=== PATIENT | female | born 1945 | race Caucasian/White ===

== ENCOUNTER 2016-11-14 15:55 | Inpatient (IN) | payer MEDICARE, OTHER ==
[~2016-11-14] VITALS: Ht 162.6 cm; Wt 85.7 kg
[2016-11-14 18:01] LABS: HEMOGLOBIN 15.8 gm/dl (12.3-15.3); RED BLOOD COUNT 5.03 M/UL (4.00-5.10); WHITE BLOOD COUNT 13.1 K/UL (4.5-11.0)
[2016-11-14 18:30] LABS: BUN/CREATININE RATIO 31 (0-10)
[2016-11-14 22:55] LABS: GLUCOSE,CSF 68 mg/dL (50-80); TOTAL PROTEIN,CSF 55 mg/dL (20-45)
[2016-11-15] MEDS ORDERED: ASPIRIN EC81 MG PO (09:57)
[2016-11-15] MEDS ORDERED: PREDNISONE10 MG PO (09:57)
[2016-11-15] MEDS ORDERED: IPRAT-ALBUT 0.5-3 ML INH (09:58)
[2016-11-15] MEDS ORDERED: MELOXICAM7.5 MG PO (10:00)
[2016-11-15] MEDS ORDERED: SYMBICORT 160-1 INHA INH (10:00)
[2016-11-15] MEDS ORDERED: NITROGLYCERIN0.4 MG SL (10:01)
[2016-11-15] MEDS ORDERED: ZANAFLEX4 M1 PO (10:02)
[2016-11-15] MEDS ORDERED: METOPROLOL TART25 MG PO (10:03)
[2016-11-15] MEDS ORDERED: PROTONIX40 MG PO (10:04)
[2016-11-15] MEDS ORDERED: ZANTAC300 MG PO (10:04)
[2016-11-15] MEDS ORDERED: ZOCOR10 MG PO (10:04)
[2016-11-15] MEDS ORDERED: PROAIR HFA8.5 GM INH (10:05)
[2016-11-15] MEDS ORDERED: LORTAB 5-325 M1 EACH PO (10:05)
[2016-11-16] MEDS ORDERED: NEURONTIN 400400 MG PO (03:45)
[2016-11-16] MEDS ORDERED: QUINAPRIL-HCTZ1 EAC1 PO (09:59)
== END 2016-11-16 14:55 | disposition left against medical advice (07) | DRG 93 ==
LOC: ER1 15:55 → ZEROF 23:15 → MED SURG 4 11-15 11:00
PROVIDERS: Family Medicine; Preventive Medicine Occupational Medicine; ADMIT Internal Medicine
PROC: 009U3ZX Drainage of Spinal Canal, Percutaneous Approach, Diagnostic (ICD-10-PCS; principal; 2016-11-14)
DX: G92 Toxic encephalopathy (principal); T40.2X5A Adverse effect of other opioids, initial encounter; M31.6 Other giant cell arteritis; I10 Essential (primary) hypertension; J44.9 Chronic obstructive pulmonary disease, unspecified; E78.5 Hyperlipidemia, unspecified; D72.829 Elevated white blood cell count, unspecified; T38.0X5A Adverse effect of glucocorticoids and synthetic analogues, initial encounter; G89.4 Chronic pain syndrome; F17.210 Nicotine dependence, cigarettes, uncomplicated; K21.9 Gastro-esophageal reflux disease without esophagitis; Z79.82 Long term (current) use of aspirin; Z79.891 Long term (current) use of opiate analgesic; Z79.51 Long term (current) use of inhaled steroids; Z79.52 Long term (current) use of systemic steroids; Z79.899 Other long term (current) drug therapy; Z82.49 Family history of ischemic heart disease and other diseases of the circulatory system
CPT/HCPCS: 36415; 70450; 71020; 80053; 80307; 81001; 82140; 82150; 82550; 82553; 82945; 83605; 83690; 83874; 83880; 84157; 84484; 85025; 86140; 87040; 87070; 87086; 87205; 89051; 93005; 94640; 94664; 96361; 96365; 96367; 96372; 96375; 99285; J0290; J0696; J1650; J2060; J2185; J2405; J2550; J3370; J7030; J7050